=== PATIENT | female | born 1965 ===

== ENCOUNTER 2020-10-12 12:26 | Day surgery (SDC) | payer OTHER ==
[~2020-10-12 12:26] MED LIST: Lactated Ringers 1,000 ML IV SCH; Sodium Chloride 0.9% 10 ML SDV IV PRN; Sodium Chloride 0.9% 10 ML Syringe FLUSH PRN; Sodium Chloride 0.9% 2.5 ML Syringe FLUSH PRN
--- NOTE | 2020-10-12 13:19 | PCM.PREANE ---
Preanesthetic Assessment - Anesthesia/Transfusion/Family Hx Anesthesia History: Prior Anesthesia Reaction Type of Anesthesia Reaction: Excessive Nausea/Vomiting Transfusion History: No Prior Transfusion(s) - Review of Systems General: No Symptoms Pulmonary: No Symptoms Cardiovascular: No Symptoms Gastrointestinal: Abdominal Pain Neurological: No Symptoms Other: Reports: None - Physical Assessment NPO Status Date: 10/11/20 Vital Signs: Last Vital Signs Temp Pulse 74 10/12/20 12:39 Resp 15 10/12/20 12:39 BP 162/76 H 10/12/20 12:39 Pulse Ox 98 10/12/20 12:39 Height: 5 ft 2 in Weight: 71.214 kg ASA Class: 2 Mental Status: Alert & Oriented x3 Airway Class: Mallampati = 2 Dentition: Reports: Normal Dentition ROM/Head Extension: Full Lungs: Clear to Auscultation, Normal Respiratory Effort Cardiovascular: Regular Rate, Regular Rhythm - Allergies Allergies/Adverse Reactions: Allergies Allergy/AdvReac Type Severity Reaction Status Date / Time Dairy Products Allergy Abdominal Verified 10/07/20 08:52 Pain - Blood Blood Available: No - Anesthesia Plan Pre-Op Medication Ordered: None - Acknowledgements Pt an Appropriate Candidate for the Planned Anesthesia: Yes Alternatives and Risks of Anesthesia Discussed w Pt/Guardian: Yes Pt/Guardian Understands and Agrees with Anesthesia Plan: Yes PreAnesthesia Questionnaire HEENT History: Reports: Allergic Rhinitis, Other (See Below) Other HEENT History: wears glasses/contacts Cardiovascular History: Reports: None Respiratory History: Reports: None Gastrointestinal History: Reports: Diverticulosis Genitourinary History: Reports: Pyelonephritis APPLE TURNER History: Reports: Musculoskeletal History: Reports: None Neurological History: Reports: Migraines Psychiatric History: Reports: None Endocrine/Metabolic History: Reports: None Hematologic History: Reports: None Immunologic History: Reports: None Oncologic (Cancer) History: Reports: None Dermatologic History: Reports: None - Past Surgical History Head Surgeries/Procedures: Reports: None HEENT Surgical History: Reports: Oral Surgery Other HEENT Surgeries/Procedures: wisdom teeth extraction Cardiovascular Surgical History: Reports: None Respiratory Surgical History: Reports: None GI Surgical History: Reports: None Female Surgical History: Reports: Hysterectomy Endocrine Surgical History: Reports: None Neurological Surgical History: Reports: None Musculoskeletal Surgical History: Reports: None Oncologic Surgical History: Reports: None Dermatological Surgical History: Reports: None - SUBSTANCE USE Tobacco Use Status *Q: Never Tobacco User - HOME MEDS Home Medications: Home Meds Acyclovir [Zovirax 5% Crm] 1 applic TOP ASDIRECTED PRN 10/07/20 [History] Cetirizine [ZyrTEC] 1 tab PO BEDTIME 10/07/20 [History] Cyclobenzaprine HCl 10 mg PO ASDIRECTED PRN 10/07/20 [History] Fluticasone Propionate [Flonase Allergy Relief] 1 spray NASBOTH DAILY 10/07/20 [History] SUMAtriptan succinate [Imitrex] 1 tab PO ASDIRECTED PRN 10/07/20 [History] traZODone HCl [Trazodone HCl] 0.5 tab PO BEDTIME 10/07/20 [History] - CURRENT (IN HOUSE) MEDS Current Meds: Current Medications Lactated Ringer's (Ringers, Lactated) 1,000 mls @ 125 mls/hr IV ASDIRECTED AISHA Last Admin: 10/12/20 12:55 Dose: 125 mls/hr Documented by: Sodium Chloride (Saline Flush) 10 ml FLUSH ASDIRECTED PRN PRN Reason: Keep Vein Open Sodium Chloride (Saline Flush) 2.5 ml FLUSH ASDIRECTED PRN PRN Reason: Keep Vein Open Sodium Chloride (Saline Flush) 10 ml FLUSH ASDIRECTED PRN PRN Reason: Keep Vein Open Sodium Chloride (Saline Flush) 2.5 ml FLUSH ASDIRECTED PRN PRN Reason: Keep Vein Open Sodium Chloride (Normal Saline) 10 ml IV ASDIRECTED PRN PRN Reason: IV Use
[2020-10-12] MEDS ORDERED: Propofol 200 MG/20 ML SDV ONE (13:42)
[2020-10-12] MEDS ORDERED: Midazolam 1 MG/ML 2 ML SDV ONE (13:42)
--- NOTE | 2020-10-12 15:07 | PCM.OPNOTE ---
- General Post-Op/Procedure Note Date of Surgery/Procedure: 10/12/20 Operative Procedure(s): Diagnostic colonoscopy and biopsy Findings: Abnormal appearing tissue at the dentate line, biopsy taken diverticulosis throughout mainly in the sigmoid colon Pre Op Diagnosis: Diverticulosis, history of diverticulitis Post-Op Diagnosis: Anal canal lesion, diverticulosis Anesthesia Technique: [facility] [place] Surgeon: Crys Ryan Condition: Good
--- NOTE | 2020-10-12 15:35 | PCM48HPAN ---
Post Anesthesia Note - EVALUATION WITHIN 48HRS OF ANESTHETIC Vital Signs in Normal Range: Yes Patient Participated in Evaluation: Yes Respiratory Function Stable: Yes Airway Patent: Yes Cardiovascular Function Stable: Yes Hydration Status Stable: Yes Pain Control Satisfactory: Yes Nausea and Vomiting Control Satisfactory: Yes Mental Status Recovered: Yes Vital Signs: Last Vital Signs Temp 96.8 F L 10/12/20 15:20 Pulse 76 10/12/20 15:20 Resp 14 10/12/20 15:20 BP 124/61 10/12/20 15:20 Pulse Ox 95 10/12/20 15:20
--- NOTE | 2020-10-12 15:35 | PCM.POSTAN ---
POST ANESTHESIA ASSESSMENT - MENTAL STATUS Mental Status: Alert, Oriented - VITAL SIGNS Vital Signs: Last Vital Signs Temp 96.8 F L 10/12/20 15:20 Pulse 76 10/12/20 15:20 Resp 14 10/12/20 15:20 BP 124/61 10/12/20 15:20 Pulse Ox 95 10/12/20 15:20 - RESPIRATORY Respiratory Status: Respiratory Rate WNL, Airway Patent, O2 Saturation Stable - CARDIOVASCULAR CV Status: Pulse Rate WNL, Blood Pressure Stable - GASTROINTESTINAL GI Status: No Symptoms - POST OP HYDRATION Hydration Status: Adequate & Stable
--- NOTE | 2020-10-13 13:25 | OR ---
SURGEON: CRYS RYAN MD DATE OF PROCEDURE: 10/12/2020 PREOPERATIVE DIAGNOSES: Right lower quadrant abdominal pain, diverticulosis. POSTOPERATIVE DIAGNOSES: 1. Diverticulosis. 2. Anal canal lesion. PROCEDURE PERFORMED: Diagnostic colonoscopy with biopsy. PRIMARY SURGEON: Crys Ryan MD. ANESTHESIA: MAC. INSTRUMENT USED: Olympus colonoscope. EXTENT OF EXAMINATION: To the cecum. PREPARATION: Good. LIMITATIONS: None. INDICATIONS FOR EXAMINATION: The patient is a 55-year-old female who presents with chronic right lower quadrant pain. She underwent a barium enema several years ago that showed severe diverticulosis throughout the sigmoid colon. She continues to have intermittent right lower quadrant pain. Decision was made to proceed with diagnostic colonoscopy. I explained the procedure, expected perioperative course, and the risks including bleeding, infection, or damage to surrounding structures including perforation. The patient verbalized understanding and wishes to proceed. PROCEDURE IN DETAIL: The patient was brought to the endoscopy suite and placed in a left lateral decubitus position. A time-out was completed verifying the patient's name, age, date of , allergies, and procedure to be performed. Monitored anesthesia care was induced. Continuous oxygen was provided via nasal cannula throughout the procedure. After adequate sedation was achieved, a digital rectal exam was performed. This exam was within normal limits. A well-lubricated colonoscope was inserted in the rectum and advanced under direct visualization to the level of the cecum. The cecum was identified by both visual and anatomic landmarks. A photograph was taken of the cecal cap as well as the scope retroflexed within the cecum. Scope was then fully withdrawn while examining the color, texture, anatomy, and integrity of the mucosa from the cecum to the anal canal. The patient had diverticulosis throughout the whole colon. The sigmoid colon had the majority of the diverticula. No polyps were identified. The scope was then brought into the rectum and retroflexed to allow visualization of the anal canal opening. Along the dentate line, the patient had an abnormal appearing tissue. This did not appear to be a polyp. I could not tell if this was hypertrophied hemorrhoidal tissue versus abnormal cells. A biopsy of this was taken and sent to pathology, labeled as anal canal lesion. Scope was then straightened out and fully withdrawn. The cecum to anus time was 9 minutes. The patient tolerated the procedure well. She was taken to PACU in stable condition. ENDOSCOPIC DIAGNOSES: 1. Diverticulosis. 2. Anal canal lesion. RECOMMENDATIONS: Follow up in clinic in 2 weeks. VERO AMBROSIO /[id number]
== END 2020-10-12 15:39 | disposition home or self-care (01) ==
LOC: MW.SDS 12:26
PROVIDERS: ATTEND Surgery
DX: D12.9 Benign neoplasm of anus and anal canal (principal); K57.30 Diverticulosis of large intestine without perforation or abscess without bleeding; K62.89 Other specified diseases of anus and rectum; G89.29 Other chronic pain; Z79.899 Other long term (current) drug therapy; Z91.011 Allergy to milk products; Z98.890 Other specified postprocedural states
CPT/HCPCS: 00811; 88305; J2250; J2704; J7120